=== PATIENT | female | born 1955 | race Native Hawaiian/Other Pacific Islander ===

== ENCOUNTER 2018-04-25 07:26 | Outpatient (CLI) | payer OTHER | END 2018-04-25 07:27 | disposition home or self-care (01) | LOC: C.LAB 07:26 | DX: E11.9 Type 2 diabetes mellitus without complications (principal); I10 Essential (primary) hypertension; E78.5 Hyperlipidemia, unspecified; E11.40 Type 2 diabetes mellitus with diabetic neuropathy, unspecified; I69.392 Facial weakness following cerebral infarction ==

== ENCOUNTER 2018-07-27 14:13 | Outpatient (CLI) | payer OTHER | END 2018-07-27 14:14 | disposition home or self-care (01) | LOC: C.RADH 14:13 ==